=== PATIENT | male | born 1975 | race Caucasian/White ===

== ENCOUNTER 2016-09-11 17:05 | Observation (INO) | payer SELFPAY ==
--- NOTE | ~2016-09-11 | HP ---
History And Physical [address] [address] NAME: ESTRELLITA ALMANZA : 71 STATUS : ADM Radha PAT#: [id number] AGE: 41 ADM/REG DATE : 09/11/16 MR#: [id number] REPORT SERV DATE: 09/11/16 DICTATED BY: HAMMAD YOO DATE: 09/11/16 REPORT STATUS : Draft TRANSCRIBED BY: MODL DATE: 09/11/16 DATE OF ADMISSION: 09/11/2016 CHIEF COMPLAINT: A 41-year-old male presenting with ostomy increased output and evidence of dehydration. HISTORY OF PRESENTING ILLNESS: The patient's history was obtained through careful interview with the patient, coupled with review of [facility] medical records. The patient said that about midnight leading up to admission, he had increasing ostomy output. He believes he has emptied it more than 20 times today and his bag becomes completely full of a liquid that looks like urine. He describes peristomal abdominal discomfort, a sharp stinging pain, 7/10 severity that has been relatively constant throughout the last day, but he has noticed no herniation of the stomal area. He has had nausea, but no vomiting. No recent antibiotics. No recent sick contacts. No fevers or chills. No shortness of breath. No chest pain. No cough. He has had some recent problems with bruising, but no active bleeding. No blood in his ostomy. No weight loss. REVIEW OF SYSTEMS: Otherwise, a 14-point review of systems was obtained and was negative. PAST MEDICAL HISTORY: 1. Colon cancer, status post total colectomy in 2013. No chemotherapy. 2. Crohn's disease, seen by Dr. Markus Lay. 3. Small bowel obstruction. 4. Gastroesophageal reflux disorder. 5. Urinary tract infection. 6. No cardiac disease. No lung disease. PAST SURGICAL HISTORY: 1. Colectomy with ostomy placement. 2. Hernia repair. 3. Fistular repair around the rectum. 4. Urethral dilatation. ALLERGIES: ROCEPHIN. SOCIAL HISTORY: The patient still smokes. Drinks occasional alcohol. Lives in [facility] History And Physical [address] [address] NAME: ESTRELLITA ALMANZA : 71 STATUS : ADM Radha PAT#: [id number] AGE: 41 ADM/REG DATE : 09/11/16 MR#: [id number] REPORT SERV DATE: 09/11/16 DICTATED BY: HAMMAD YOO DATE: 09/11/16 REPORT STATUS : Draft TRANSCRIBED BY: GINA DATE: 09/11/16 Tarsha. Has no children. 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 FAMILY HISTORY: Mother and father with lung cancer. Uncle with colon cancer. Mother with diabetes. CURRENT MEDICATIONS: Omeprazole. PHYSICAL EXAMINATION: VITAL SIGNS: Temperature 98.1, pulse 52, blood pressure 185/86, respiratory rate 16, O2 saturation 100% on room air. GENERAL: A pleasant, cooperative male. He appears chronically ill, but in no acute distress. HEENT: Pupils equal, round, and reactive to light. No conjunctival pallor. No scleral icterus. Nares are patent. Oropharynx is clear of obstruction. Dry mucous membranes. NECK: Trachea midline. No thyromegaly. LYMPH: No cervical lymphadenopathy. No supraclavicular lymphadenopathy. No inguinal lymphadenopathy. RESPIRATORY: Clear to auscultation at bases. No wheezes, rales, or rhonchi. Normal respiratory effort. CARDIOVASCULAR: Bradycardic. Regular rhythm. No murmurs, rubs, or gallops. No extremity edema is appreciated. ABDOMEN: Flat, nontender throughout. No distention of significance. Has active bowel tones. No hepatosplenomegaly. DERMATOLOGICAL: Warm and dry extremities. No pallor. No cyanosis. There is slight tenting of the skin to suggest underlying dehydration. PSYCHIATRIC: Normal affect. Good mood. Alert and oriented x3. LABORATORY DATA: White blood cell count 7.6, hemoglobin 13, hematocrit 37, platelets 264. Sodium 142, potassium 3.6, chloride 109, bicarb 24, BUN 12, creatinine 1.15, glucose 90, lipase 145, lactic acid 1.6. Liver enzymes within normal limits. STUDIES: CT scan of the abdomen shows slight distention of small bowel, but no acute abnormality. ASSESSMENT AND PLAN: 1. Dehydration. Place on IV fluids and monitor. 2. Short bowel syndrome. Try stool bulkers such as cholestyramine. 3. Crohn's disease. KPL/GINA Hammad Yoo M.D. History And Physical [address] [address] NAME: ESTRELLITA ALMANZA : 71 STATUS : ADM Radha PAT#: [id number] AGE: 41 ADM/REG DATE : 09/11/16 MR#: [id number] REPORT SERV DATE: 09/11/16 DICTATED BY: HAMMAD YOO DATE: 09/11/16 REPORT STATUS : Draft TRANSCRIBED BY: GINA DATE: 09/11/16 / [id number] CC: Davis Ashby MD
--- NOTE | ~2016-09-11 | DS ---
Discharge Summary [address] [place] [place]. [address] NAME: ESTRELLITA ALMANZA : 71 STATUS : ADM Radha PAT#: [id number] AGE: 41 ADM/REG DATE : 09/11/16 MR#: [id number] REPORT SERV DATE: 09/13/16 DICTATED BY: KENAN HEWITT DATE: 09/13/16 REPORT STATUS : Draft TRANSCRIBED BY: MODL DATE: 09/13/16 ADMISSION DATE: 09/11/2016 DISCHARGE DATE: 09/13/2016 DISCHARGE DIAGNOSES: 1. Short bowel syndrome. 2. Increased output in the colostomy. 3. Gastroesophageal reflux. 4. History of colon cancer, status post total colectomy. 5. Crohn's disease, followed by Dr. Lay. CONSULTANTS DURING THIS HOSPITALIZATION: None. INVASIVE PROCEDURES DONE DURING THIS HOSPITALIZATION: None. BRIEF HPI: The patient is a 41-year-old male presented with increasing output through his colostomy and dehydration with acute kidney injury, so he was admitted. For detailed history and physical exam, please see note dictated by Dr. Damian Rachel on 09/11/2016. HOSPITAL COURSE: After being admitted to the hospital, this patient underwent aggressive IV fluid resuscitation and he was placed on Questran. All his other lab work was negative. No need of antibiotics was evident during this hospitalization. This patient within 24 hours significantly improved. He was tolerating an oral diet. His colostomy output had decreased as well and he had more formed stool in the colostomy bag. He feels well enough that he could be discharged home and recover in the outpatient setting. DISCHARGE DISPOSITION: Home. DISCHARGE ACTIVITY: As tolerated. DISCHARGE DIET: As tolerated. DISCHARGE MEDICATIONS: Questran Light 4 g twice daily with liquid of choice, Prilosec 20 mg once daily. DISCHARGE FOLLOWUP: With patient's primary care physician in one to two weeks. About 20 minutes spent planning this patient's discharge, reconciling medications, writing prescriptions, discussing hospital care, and followup with the patient and documenting this discharge. DICTATED BY: Kenan Hewitt M.D. SV/GINA Discharge Summary [address] [place] [place]. [address] NAME: ESTRELLITA ALMANZA : 71 STATUS : ADM Radha PAT#: [id number] AGE: 41 ADM/REG DATE : 09/11/16 MR#: [id number] REPORT SERV DATE: 09/13/16 DICTATED BY: KENAN HEWITT DATE: 09/13/16 REPORT STATUS : Draft TRANSCRIBED BY: GINA DATE: 09/13/16 Kenan Hewitt M.D. / [id number] CC: Davis Ashby MD
[~2016-09-11 17:05] MED LIST: AMOXIL500 MG PO; CEFT2 PO; CIP5 PO; FLORASTOR250 MG PO; IMOD PO; K500 PO; LEVAQUIN750 MG PO; LEVSINTAB PO; LOM PO; MSCONT15 PO; NORCO1 TA1 PO; OXYCOD PO; P10; P20 PO; PCET PO; PERCOCET1 TA2 PO; PRILO PO; PRILOSEC OTC20 MG PO; PRILOSEC40 MG PO; PRIN20 PO; PYR100B PO; QUESLITE PO; QUESTRAN4 GM PO; ZOFRAN4 PO
[2016-09-11 17:48] LABS: BASOPHILS 0.4 %; BASOPHILS ABSOLUTE 0.03 10/3/uL (0.0-0.16); EOSINOPHILS 1.7 %; EOSINOPHILS ABSOLUTE 0.13 10/3/uL (0.0-0.53); ER CBC TAT 0 Hrs 10 Mins; HEMATOCRIT 36.7 % (40.0-51.0); HEMOGLOBIN 12.8 g/dL (13.6-17.8); IMMATURE GRANULOCYTES 0.1 %; IMMATURE GRANULOCYTES ABSOLUTE 0.01 10/3/uL (0.0-0.11); LYMPHOCYTES 34.4 %; MANUAL DIFF NO %; MEAN CORPUS HGB CONC 34.9 g/dL (32.0-36.0); MEAN CORPUSCULAR HEMOGLOB 31.7 pg (26.0-34.0); MEAN CORPUSCULAR VOLUME 90.8 fL (80-100); MEAN PLATELET VOLUME 8.9 fL (9.2-13.0); MONOCYTES 6.5 %; MONOCYTES ABSOLUTE 0.49 10/3/uL (0.21-1.20); NEUTROPHILS 56.9 %; NEUTROPHILS ABSOLUTE 4.29 10/3/uL (2.02-8.40); PLATELET COUNT 264 10/3/uL (150-400); RBC DISTRIBUTION WIDTH 15.8 % (12.0-16.0); RED CELL COUNT 4.04 10/6/uL (4.7-6.1); WHITE BLOOD CELLS 7.6 10/3/uL (4.5-10.5)
[2016-09-11 19:20] LABS: ALBUMIN 3.7 G/DL (3.5-5.0); BUN (BLOOD UREA NITROGEN) 12 MG/DL (6-23); CHLORIDE, SERUM 109 MMOL/L (96-112); CO2 (CARBON DIOXIDE) 24 MMOL/L (24-34); CREATININE 1.15 MG/DL (0.70-1.30); GFR AFRICAN AMERICAN 90 ML/MIN (>=60); GFR NON AFRICAN AMERICAN 78 ML/MIN (>=60); POTASSIUM, SERUM 3.6 MMOL/L (3.5-5.3); SGOT(AST) 31 U/L (5-40); SGPT(ALT) 20 U/L (5-65); SODIUM, SERUM 142 MMOL/L (135-148); TOTAL BILIRUBIN 0.5 MG/DL (0-1.2)
[2016-09-11 19:21] LABS: CALCIUM, SERUM 9.2 MG/DL (8.5-10.4); GLOBULIN 3.7 G/DL (2.5-4.1); GLUCOSE, SERUM 90 MG/DL (60-99); TOTAL PROTEIN 7.4 G/DL (6.0-8.5)
[2016-09-11 19:22] LABS: ALKALINE PHOSPHATASE 110 U/L (45-117)
[2016-09-11] MEDS ORDERED: PRILOSEC OTC20 MG PO (20:12)
[2016-09-12 05:29] LABS: BASOPHILS 0.6 %; BASOPHILS ABSOLUTE 0.04 10/3/uL (0.0-0.16); EOSINOPHILS 4.6 %; EOSINOPHILS ABSOLUTE 0.32 10/3/uL (0.0-0.53); HEMATOCRIT 33.2 % (40.0-51.0); HEMOGLOBIN 11.3 g/dL (13.6-17.8); IMMATURE GRANULOCYTES 0.1 %; IMMATURE GRANULOCYTES ABSOLUTE 0.01 10/3/uL (0.0-0.11); LYMPHOCYTES 42.3 %; LYMPHOCYTES ABSOLUTE 2.92 10/3/uL (0.67-4.30); MEAN CORPUSCULAR HEMOGLOB 31.7 pg (26.0-34.0); MEAN PLATELET VOLUME 8.8 fL (9.2-13.0); MONOCYTES 9.7 %; MONOCYTES ABSOLUTE 0.67 10/3/uL (0.21-1.20); NEUTROPHILS 42.7 %; NEUTROPHILS ABSOLUTE 2.94 10/3/uL (2.02-8.40); PLATELET COUNT 247 10/3/uL (150-400); RBC DISTRIBUTION WIDTH 15.7 % (12.0-16.0); RED CELL COUNT 3.57 10/6/uL (4.7-6.1); WHITE BLOOD CELLS 6.9 10/3/uL (4.5-10.5)
[2016-09-12 05:31] LABS: MANUAL DIFF NO %; PARTIAL THROMBO TIME 28.9 SEC (22.5-37.2)
[2016-09-12 05:49] LABS: ULTRASENSITIVE TSH 5.7 MCIU/ML (0.358-3.740)
[2016-09-13 06:22] LABS: BASOPHILS 0.3 %; BASOPHILS ABSOLUTE 0.02 10/3/uL (0.0-0.16); HEMATOCRIT 36.1 % (40.0-51.0); HEMOGLOBIN 12.1 g/dL (13.6-17.8); IMMATURE GRANULOCYTES 0.1 %; IMMATURE GRANULOCYTES ABSOLUTE 0.01 10/3/uL (0.0-0.11); LYMPHOCYTES 41.4 %; LYMPHOCYTES ABSOLUTE 2.76 10/3/uL (0.67-4.30); MEAN CORPUS HGB CONC 33.5 g/dL (32.0-36.0); MEAN CORPUSCULAR VOLUME 95.5 fL (80-100); MEAN PLATELET VOLUME 9.1 fL (9.2-13.0); MONOCYTES 8.7 %; MONOCYTES ABSOLUTE 0.58 10/3/uL (0.21-1.20); NEUTROPHILS 43.5 %; PLATELET COUNT 266 10/3/uL (150-400); RBC DISTRIBUTION WIDTH 15.9 % (12.0-16.0); RED CELL COUNT 3.78 10/6/uL (4.7-6.1); WHITE BLOOD CELLS 6.7 10/3/uL (4.5-10.5)
[2016-09-13 06:23] LABS: MANUAL DIFF NO %
[2016-09-13 06:43] LABS: ALBUMIN 3.1 G/DL (3.5-5.0); BUN (BLOOD UREA NITROGEN) 8 MG/DL (6-23); CHLORIDE, SERUM 112 MMOL/L (96-112); CO2 (CARBON DIOXIDE) 21 MMOL/L (24-34); CREATININE 1.01 MG/DL (0.70-1.30); GFR AFRICAN AMERICAN 105 ML/MIN (>=60); GFR NON AFRICAN AMERICAN 91 ML/MIN (>=60); GLUCOSE, SERUM 95 MG/DL (60-99); PHOSPHORUS, SERUM 2.4 MG/DL (2.5-4.5); POTASSIUM, SERUM 3.8 MMOL/L (3.5-5.3); SODIUM, SERUM 143 MMOL/L (135-148)
[2016-09-13] MEDS ORDERED: QUESLITE PO (09:23)
[2016-11-19] MEDS ORDERED: PRILO PO (21:42)
[2016-11-28] MEDS ORDERED: FESO4 PO (11:18)
[2016-11-28] MEDS ORDERED: IMOD PO (11:19)
[2017-01-12] MEDS ORDERED: PRILOSEC OTC20 MG PO (11:17)
[2017-01-16] MEDS ORDERED: LOM PO (11:03)
[2017-01-16] MEDS ORDERED: DURICEF PO (11:04)
== END 2016-09-13 14:32 | disposition home or self-care (01) ==
LOC: ER 17:05 → 5SO 20:34
PROVIDERS: Hospitalist; Internal Medicine; Specialist
DX: K91.2 Postsurgical malabsorption, not elsewhere classified (principal); E86.0 Dehydration; K21.9 Gastro-esophageal reflux disease without esophagitis; K50.90 Crohn's disease, unspecified, without complications; I10 Essential (primary) hypertension; Z87.440 Personal history of urinary (tract) infections; Z98.890 Other specified postprocedural states; Z79.899 Other long term (current) drug therapy; Z88.8 Allergy status to other drugs, medicaments and biological substances; F17.200 Nicotine dependence, unspecified, uncomplicated; Z86.718 Personal history of other venous thrombosis and embolism
CPT/HCPCS: 74176; 80053; 80069; 83605; 83690; 83735; 84443; 85025; 85610; 85730; 87493; 87493-59; 96372; 96374; 96375; 96376; 99285; A9270-GY; G0378; J0360; J1170; J2405; J3475